=== PATIENT | male | born 1945 | race Hispanic/Latino ===

== ENCOUNTER 2017-06-18 10:37 | Day surgery (SDC) | payer MEDICARE ==
[~2017-06-18 10:37] MED LIST: ANCEF/STERILE WATER 2 GM/20 ML 2 GM/20 ML SYRINGE IV NR; MARCAINE-EPI/PF 0.5%-1:200,000 INFILTRATI ONE; NEOSPORIN GU IR ONE
--- NOTE | 2017-06-18 12:14 | Anesthesia Consultation ---
Anesthesia Consult and Med Hx Date of service: 06/18/17 - Airway Anesthetic Teeth Evaluation: Good ROM Head & Neck: Adequate Mental/Hyoid Distance: Adequate Mallampati Class: Class II Intubation Access Assessment: Probably Good - Pulmonary Exam CTA: Yes - Cardiac Exam Cardiac Exam: RRR - Pre-Operative Health Status ASA Pre-Surgery Classification: ASA3 Proposed Anesthetic Plan: General - Pulmonary Hx Smoking: Yes (STOPPED X 40 YRS- 1PPD X 6 YRS) Hx Asthma: No Hx Respiratory Symptoms: No SOB: No Hx Pneumonia: Yes (1998) Hx Sleep Apnea: Yes (DX SLEEP APNEA WITH CPAP USE.) - Cardiovascular System Hx Hypertension: No Hx Cardia Arrhythmia: No - Central Nervous System Hx Neuromuscular Disorder: No Hx Seizures: No Hx Back Pain: Yes Hx Psychiatric Problems: No - Gastrointestinal Hx Ulcer: No Hx Gastroesophageal Reflux Disease: No - Endocrine Hx Renal Disease: No Hx Cirrhosis: No Hx Insulin Dependent Diabetes: No Hx Non-Insulin Dependent Diabetes: No Hx Thyroid Disease: No - Other Systems Hx Alcohol Use: Yes (SOCIALLY) Hx Substance Use: No Hx Cancer: Yes (LYMPHOMA- REMISSION SINCE 2001) Hx Obesity: No
--- NOTE | 2017-06-18 12:15 | Anesthesia Day of Surgery ---
Anesthesia Day of Surgery - Day of Surgery Patient Examined: Yes Patient H&P Reviewed: Yes Patient is NPO: Yes
[2017-06-18] MEDS ORDERED: XYLOCAINE MPF 2% ONE (12:33)
[2017-06-18] MEDS ORDERED: ZOFRAN ONE (12:33)
[2017-06-18] MEDS ORDERED: DECADRON ONE (12:33)
[2017-06-18] MEDS ORDERED: DIPRIVAN 10 MG/ML IV ONE (12:34)
[2017-06-18] MEDS ORDERED: SUBLIMAZE ONE (12:34)
[2017-06-18] MEDS ORDERED: NACL 0.9% 1000 ML 1,000 ML IV SCH (13:00)
[2017-06-18] MEDS ORDERED: PEPCID IV NR (13:00)
[2017-06-18] MEDS ORDERED: VERSED IV NR (13:00)
[2017-06-18] MEDS ORDERED: OMNIPAQUE 300 MG/50 ML (CATH LAB) IV ONE (13:03)
[2017-06-18] MEDS ORDERED: WATER FOR IRRIG STERILE IR ONE (13:03)
[2017-06-18] MEDS ORDERED: ePHEDrine SULFATE ONE (13:07)
[2017-06-18] MEDS ORDERED: LASIX ONE (13:29)
--- NOTE | 2017-06-18 13:42 | Post Operative Note ---
Date of procedure: 06/18/17 Pre-op diagnosis: bladder cancer Post-op diagnosis: same Findings: as above Procedure: cysto rpgs biopsies Anesthesia: GETA Surgeon: DENISE HEARD Estimated blood loss: minimal Pathology: list (bladder) Specimen disposition: to lab Condition: stable Disposition: PACU
--- NOTE | 2017-06-18 13:43 | Discharge Summary ---
Short Stay Discharge Plan Activity: other (no straining ) Diet: low fat, low cholesterol, low salt Special Instructions: other ([facility] ) Durable Medical Equipment Needed Upon Discharge: other ([facility] ) Follow up with: MARIA ISABEL STAFFORD MD [Primary Care Provider] - 7 Days DENISE HEARD MD [Staff Physician] - 06/20/17
--- NOTE | 2017-06-18 14:03 | Fluoroscopy Report ---
RETROGRADE PYELOGRAM: There is adequate filling of the ureters and intrarenal collecting systems with no filling defects or anatomic abnormalities identified.
[2017-06-18 14:06] VITALS: BP 137/73
--- NOTE | 2017-06-18 14:19 | Post Anesthesia Evaluation ---
- Post Anesthesia Evaluation Patient Participated: Yes Airway Patent: Yes Stable Respiratory Function: Yes Nausea/Vomiting: No Temp > 96.8F: Yes Pain Manageable: Yes Adequeate Hydration: Yes Anesthesia Complications: No
--- NOTE | 2017-06-19 00:48 | Operative Report ---
PREOPERATIVE DIAGNOSIS: History of bladder cancer. POSTOPERATIVE DIAGNOSIS: History of bladder cancer. PROCEDURE: Cystoscopy, multiple biopsies and retrogrades. SURGEON: Rafael Pryor MD ANESTHESIA: General. FINDINGS: This is a gentleman who for many years has been battling bladder cancer. 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 This came up after BCG treatment. It almost looks like there was a severe reaction around areas of tumor. He now presents for followup biopsies. DESCRIPTION OF PROCEDURE: The patient brought to the operating room and placed on the operating table. Following induction of anesthesia, placed in lithotomy position, prepped and draped in usual sterile fashion. Cystourethroscopy showed patchy areas of squamous metaplasia. Even at the bladder neck where there was a papillary tumor there was just a whitish blanched area that looked necrotic. Biopsies were taken throughout the bladder. There was one area of reddening and erythema in the posterior wall, which was biopsied as well. This was a little towards the right side. Retrograde showed narrowing at the junction of the mid and lower ureter. Hemostasis was obtained with the cautery unit. A resectoscope was placed because at the bladder neck where there was a previous tumor years ago there was just some necrotic tissue which was resected and sent to Pathology. The patient tolerated the procedure well. A 22-[place] 2-way catheter was perfectly clear. The post RPG drainage was normal. I do not think that is an internal filling defect in the mid ureter. It drained and filled out when we injected more dye under fluoroscopy. The patient tolerated the procedure well and brought to recovery in stable condition. JOB# [id number] BEV/[id number]
== END 2017-06-18 15:28 | disposition home or self-care (01) ==
LOC: OR 10:37
PROVIDERS: ATTEND Urology
DX: N30.20 Other chronic cystitis without hematuria (principal); N32.89 Other specified disorders of bladder; N13.5 Crossing vessel and stricture of ureter without hydronephrosis; K21.9 Gastro-esophageal reflux disease without esophagitis; G47.30 Sleep apnea, unspecified; Z87.891 Personal history of nicotine dependence; Z87.01 Personal history of pneumonia (recurrent); Z72.89 Other problems related to lifestyle; Z85.72 Personal history of non-Hodgkin lymphomas; Z85.51 Personal history of malignant neoplasm of bladder; Z79.899 Other long term (current) drug therapy
CPT/HCPCS: 52204; 74420; 88305; A4217; C1758; J0690; J1100; J1940; J2250; J2405; J2704; J3010; J7030; Q9967